=== PATIENT | male | born 1980 | race Hispanic/Latino ===

== ENCOUNTER 2019-02-20 09:49 | Emergency (ER) | payer OTHER ==
[2019-02-20 10:55] LABS: Absolute Lymphocytes (CBC) 1.3 K/uL (0.7-4.9); Basophils % 0.6 % (0-1.3); Hematocrit 43.2 % (39.6-49.0); Lymphocytes % 21.2 % (15.3-44.8); MPV 7.7 fL (7.6-11.3); RBC Red Blood Cell Count 4.85 M/uL (4.33-5.43)
[2019-02-20 11:41] LABS: ALT/SGPT 48 U/L (12-78); AST/SGOT 20 U/L (15-37); Albumin 3.7 g/dL (3.4-5.0); Alkaline Phosphatase 80 U/L (45-117); BUN Blood Urea Nitrogen 15 mg/dL (7-18); Bicarbonate 29 mmol/L (21-32); Bilirubin Direct 0.2 mg/dL (0-0.2); Bilirubin Total 0.7 mg/dL (0.2-1.0); Glucose Level 95 mg/dL (74-106); Lipase 243 U/L (73-393); Potassium 4.3 mmol/L (3.5-5.1); Protein, Total 7.1 g/dL (6.4-8.2); Sodium Level 140 mmol/L (136-145)
--- NOTE | 2019-02-20 12:08 | RAD REPORT ---
EXAM DESCRIPTION: CT - Abdomen Pelvis W Contrast - 02/20/2019 11:57 am CLINICAL HISTORY: ABD PAIN, patient reports acute onset left-sided flank pain and a pop sensation tr iggering pain after lifting event COMPARISON: None. TECHNIQUE: Biphasic, helical CT imaging of the abdomen and pelvis was performed following 100 ml non -ionic IV contrast. No oral contrast given. All CT scans are performed using dose optimization technique as appropriate and may include automated exposure control or mA/KV adjustment according to patient size. FINDINGS: No lung base pleural or parenchymal abnormality. No pericardial thickening or effusion. Lo wer left rib cage is intact. The left-sided skeletal musculature of the abdomen, pelvis and lower jos[address] st also without abnormality. Lumbar spinous processes are intact. From T9-L5 there is no compression fracture. Disc bulge changes are present at L4-5 and L5-S1. Central canal detail is inherently limite d. The liver, spleen, and pancreas show no suspicious findings. Gallbladder and biliary tree are also wi thout suspicious finding. Symmetric renal function is seen with no hydronephrosis or suspicious renal mass. No pyelonephritis o r acute parenchymal process. No bladder abnormalities. No adrenal abnormalities. No dilated bowel loops or bowel wall thickening. No free air, free fluid or inflammatory stranding. No mass or bulky lymphadenopathy. Fat extends into the origin of the left inguinal canal. No congest ion or edema in this region. Small periumbilical fat only hernia is seen. No suspicious bony findings. IMPRESSION: Contrast enhanced CT abdomen and pelvis showing no significant or suspicious finding. Specifically no lower rib injury. No left-sided skeletal muscle edema or hematoma. Disc bulge changes at L4-5 and L5-S1 are present but are not fully assessed on CT imaging. The bulgin g disc does not cause canal or foramen stenoses.
--- NOTE | 2019-02-20 12:15 | ER ---
Nurse's Notes [facility] Name: Doe Cox Age: 38 yrs Sex: Male : 1980 Arrival Date: 02/20/2019 Time: 09:57 Bed 16 Private MD: Diagnosis: Upper abdominal pain, unspecified Presentation: 02/20 10:06 Presenting complaint: Patient states: was pushing a heavy toolbox 2 weeks ago, heard a iw "crunching/popping" sound, has had pain in left flank around to abdomen since then, pain worsens when bending forward, feels like it "locks up", sometimes he can't stand up when the pain hits. Transition of care: patient was not received from another setting of care. Onset of symptoms was February 08, 2019. Risk Assessment: Do you want to hurt yourself or someone else? Patient reports no desire to harm self or others. Initial Sepsis Screen: Does the patient meet any 2 criteria? No. Patient's initial sepsis screen is negative. Does the patient have a suspected source of infection? No. Patient's initial sepsis screen is negative. Care prior to arrival: None. 10:06 Method Of Arrival: Ambulatory iw 10:06 Acuity: FARTUN 3 iw Historical: - Allergies: 10:08 No Known Allergies; iw - Home Meds: 10:08 None [Active]; iw - PMHx: 10:08 None; iw - PSHx: 10:08 None; iw - Immunization history:: Adult Immunizations up to date. - Social history:: Smoking status: Patient/guardian denies using tobacco. - Ebola Screening: : Patient negative for fever greater than or equal to 101.5 degrees Fahrenheit, and additional compatible Ebola Virus Disease symptoms Patient denies exposure to infectious person Patient denies travel to an Ebola-affected area in the 21 days before illness onset No symptoms or risks identified at this time. Screenin:03 Abuse screen: Denies threats or abuse. Denies injuries from another. Nutritional hb screening: No deficits noted. Tuberculosis screening: No symptoms or risk factors identified. Fall Risk None identified. Vital Signs: 10:08 BP 140 / 86; Pulse 83; Resp 18 S; Temp 98.3; Pulse Ox 99% on R/A; Weight 127.01 kg; iw Height 6 ft. 0 in. (182.88 cm); Pain 8/10; 12:07 BP 113 / 62; Pulse 70; Resp 16; Temp 98.2(TE); Pulse Ox 97% on R/A; mh5 10:08 Body Mass Index 37.97 (127.01 kg, 182.88 cm) ED Course: 09:57 Patient arrived in ED. mr 10:03 Teresa Regan FNP-C [facility]. kb 10:03 Yrn Lewis MD is Attending Physician. kb 10:03 Arm band placed on. hb 10:03 Patient has correct armband on for positive identification. Bed in low position. Call hb light in reach. Side rails up X 1. 10:06 Mackenzie Lopez, RN is Primary Nurse. hb 10:08 Triage completed. iw 10:40 Inserted saline lock: 20 gauge in left antecubital area, using aseptic technique. Blood hb collected. 11:59 CT Abd/Pelvis - IV Contrast Only In Process Unspecified. EDMS Administered Medications: No medications were administered Outcome: 12:14 Discharge ordered by . kb 12:48 Patient left the ED. Signatures: Dispatcher [employer] EDMS Teresa Regan FNP-C FNP-Ckb Zaldivar, Alla larson Ester Talbert RN RN Mackenzie Lopez, AARON RN Laureen Prince [facility]
--- NOTE | 2019-02-20 12:16 | EDPHYS ---
Physician Documentation [facility] Name: Doe Cox Age: 38 yrs Sex: Male : 1980 Arrival Date: 02/20/2019 Time: 09:57 Bed 16 Private MD: ED Physician Yrn Lewis HPI: 02/20 12:00 This 38 yrs old Male presents to ER via Ambulatory with complaints of kb Abdominal Pain. 12:00 The patient presents with abdominal pain in the upper abdomen. Onset: The kb symptoms/episode began/occurred 2 week(s) ago. The symptoms do not radiate. Associated signs and symptoms: none. The symptoms are described as constant. Modifying factors: The symptoms are alleviated by nothing, the symptoms are aggravated by nothing. Severity of pain: At its worst the pain was moderate in the emergency department the pain is unchanged. The patient has not experienced similar symptoms in the past. The patient has not recently seen a physician. 12:03 Pt reports upper abd pain that has been intermittent and crampy/tight for 2 weeks after kb hitting self in abd with toolbox accidentally.. Historical: - Allergies: 10:08 No Known Allergies; iw - Home Meds: 10:08 None [Active]; iw - PMHx: 10:08 None; iw - PSHx: 10:08 None; iw - Immunization history:: Adult Immunizations up to date. - Social history:: Smoking status: Patient/guardian denies using tobacco. - Ebola Screening: : Patient negative for fever greater than or equal to 101.5 degrees Fahrenheit, and additional compatible Ebola Virus Disease symptoms Patient denies exposure to infectious person Patient denies travel to an Ebola-affected area in the 21 days before illness onset No symptoms or risks identified at this time. ROS: 11:56 Constitutional: Negative for fever, chills, and weight loss, Neck: Negative for injury, kb pain, and swelling, Cardiovascular: Negative for chest pain, palpitations, and edema, Respiratory: Negative for shortness of breath, cough, wheezing, and pleuritic chest pain, Back: Negative for injury and pain, : Negative for injury, bleeding, discharge, and swelling, MS/Extremity: Negative for injury and deformity, Skin: Negative for injury, rash, and discoloration, Neuro: Negative for headache, weakness, numbness, tingling, and seizure. 11:56 Abdomen/GI: Positive for abdominal pain, Negative for nausea, vomiting, and diarrhea, constipation, abdominal cramps, abdominal distension, anorexia. Exam: 11:56 Constitutional: This is a well developed, well nourished patient who is awake, alert, kb and in no acute distress. Head/Face: Normocephalic, atraumatic. ENT: Nares patent. No nasal discharge, no septal abnormalities noted. Tympanic membranes are normal and external auditory canals are clear. Oropharynx with no redness, swelling, or masses, exudates, or evidence of obstruction, uvula midline. Mucous membranes moist. Neck: Trachea midline, no thyromegaly or masses palpated, and no cervical lymphadenopathy. Supple, full range of motion without nuchal rigidity, or vertebral point tenderness. No Meningismus. Chest/axilla: Normal chest wall appearance and motion. Nontender with no deformity. No lesions are appreciated. Cardiovascular: Regular rate and rhythm with a normal S1 and S2. No gallops, murmurs, or rubs. Normal PMI, no JVD. No pulse deficits. Respiratory: Lungs have equal breath sounds bilaterally, clear to auscultation and percussion. No rales, rhonchi or wheezes noted. No increased work of breathing, no retractions or nasal flaring. Abdomen/GI: Soft, non-tender, with normal bowel sounds. No distension or tympany. No guarding or rebound. No evidence of tenderness throughout. Back: No spinal tenderness. No costovertebral tenderness. Full range of motion. Skin: Warm, dry with normal turgor. Normal color with no rashes, no lesions, and no evidence of cellulitis. MS/ Extremity: Pulses equal, no cyanosis. Neurovascular intact. Full, normal range of motion. Neuro: Awake and alert, GCS 15, oriented to person, place, time, and situation. Cranial nerves II-XII grossly intact. Motor strength 5/5 in all extremities. Sensory grossly intact. Cerebellar exam normal. Normal gait. Vital Signs: 10:08 BP 140 / 86; Pulse 83; Resp 18 S; Temp 98.3; Pulse Ox 99% on R/A; Weight 127.01 kg; iw Height 6 ft. 0 in. (182.88 cm); Pain 8/10; 12:07 BP 113 / 62; Pulse 70; Resp 16; Temp 98.2(TE); Pulse Ox 97% on R/A; mh5 10:08 Body Mass Index 37.97 (127.01 kg, 182.88 cm) iw MDM: 10:04 Patient medically screened. kb 11:51 Data reviewed: vital signs, nurses notes. Data interpreted: Pulse oximetry: on room air kb is 99 %. Interpretation: normal. 12:14 Counseling: I had a detailed discussion with the patient and/or guardian regarding: the kb historical points, exam findings, and any diagnostic results supporting the discharge/admit diagnosis, lab results, radiology results, the need for outpatient follow up, a family practitioner, to return to the emergency department if symptoms worsen or persist or if there are any questions or concerns that arise at home. 02/20 10:30 Order name: Basic Metabolic Panel; Complete Time: 11:46 kb 02/20 10:30 Order name: CBC with Diff; Complete Time: 11:12 kb 02/20 10:30 Order name: Hepatic Function; Complete Time: 11:46 kb 02/20 10:30 Order name: Lipase; Complete Time: 11:46 kb 02/20 10:30 Order name: IV Saline Lock; Complete Time: 10:43 kb 02/20 10:30 Order name: CT Abd/Pelvis - IV Contrast Only; Complete Time: 12:14 kb 02/20 10:30 Order name: Labs collected and sent; Complete Time: 10:43 kb Administered Medications: No medications were administered Disposition: 15:44 Co-signature as Attending Physician, Yrn Lewis MD. rn Disposition: 02/20/19 12:14 Discharged to Home. Impression: Upper abdominal pain, unspecified. - Condition is Stable. - Discharge Instructions: Abdominal Pain, Adult, Evxu-[id number], Muscle Cramps and Spasms, [id number]. - Prescriptions for Cyclobenzaprine 10 mg Oral Tablet - take 1 tablet by ORAL route every 8 hours As needed; 30 tablet. - Medication Reconciliation Form, Thank You Letter, Antibiotic Education, Prescription Opioid Use, Work release form form. - Follow up: Emergency Department; When: As needed; Reason: Worsening of condition. Follow up: Private Physician; When: 2 - 3 days; Reason: Recheck today's complaints, Continuance of care, Re-evaluation by your physician. Signatures: Dispatcher [employer] EDTeresa Oliver, [employer]ER-C [employer]-Ckb Ester Talbert, RN RN Yrn Dasilva MD MD rn Baxter, Heather, RN RN hb Corrections: (The following items were deleted from the chart) 12:48 12:14 02/20/2019 12:14 Discharged to Home. Impression: Upper abdominal pain, iw unspecified. Condition is Stable. Forms are Medication Reconciliation Form, Thank You Letter, Antibiotic Education, Prescription Opioid Use. Follow up: Emergency Department; When: As needed; Reason: Worsening of condition. Follow up: Private Physician; When: 2 - 3 days; Reason: Recheck today's complaints, Continuance of care, Re-evaluation by your physician. kb
[2019-02-20 13:27] VITALS: BP 113/62; TEMP 98.2; O2SAT 97
== END 2019-02-20 12:48 | disposition home or self-care (01) ==
LOC: ER 09:49
DX: R10.10 Upper abdominal pain, unspecified (principal)
CPT/HCPCS: 85025; 80048; 36415; 80076; 83690; 74177; Q9967; 99283